=== PATIENT | female | born 1935 | race Caucasian/White ===

== ENCOUNTER 2016-10-25 09:51 | Inpatient (IN) | payer OTHER ==
--- NOTE | ~2016-10-25 | CR63 ---
[facility] A Service of [facility] RADIOLOGY TEXT RESULTS PATIENT: SINDHU SAMAYOA LOCATION: [place] [address] : 36 UNIT #: [id number] AGE: [address]: Zita Kennedy MD SEX: F ORDER DR: [id number] [facility] [address] [place], [place] [address] [id number] I MR#: [id number] Acc #: [id number] NAME: SINDHU SAMAYOA : 1935 SEX: F STUDY DATE/TIME: 10/25/2016 17:03 UNIT: [facility] [place] [facility] ROOM: [facility] STUDY DESCRIPTION: CR Chest 2 View Attending Physician: Zita Kennedy M.D. Ordering Physician: Zita Kennedy M.D. Primary Care Physician: Hank Gongora M.D. MEDICAL IMAGING REPORT This report is preliminary unless electronic signature is present EXAM Chest, PA and lateral. DATE OF EXAM 10/25/2016 HISTORY Chest congestion today. Right hip pain and pelvic fractures, status post fall today, preop, surgical repair of fractures. FINDINGS The heart size is stable compared with 03/18/2016. The lungs are hyperinflated with emphysematous and fibrotic changes characteristic of COPD. No airspace consolidation is seen. There are no pleural effusions. IMPRESSION COPD. No active pulmonary disease. Dictated by... Jalil Otoole M.D. THIS IS AN ELECTRONICALLY VERIFIED REPORT Jalil Otoole M.D. at 10/26/2016 1:13 PM MARISELA/shantel TD: 10/25/2016 20:54 JOB #: [id number] MEDICAL IMAGING REPORT Page 1 of 1 COPY
--- NOTE | ~2016-10-25 | DS ---
Unit #: [id number] #: [id number] Patient: SINDHU SAMAYOA [id number] [address] [place], [place] [address] [id number] I MR#: [id number] NAME: SINDHU SAMAYOA ROOM: [facility] Age: 81 Sex: F Admission Date: 10/25/2016 : 1935 Discharge Date: 10/28/2016 Attending Physician: Garry Bedoya M.D. Primary Care Physician: Hank Gongora M.D. DISCHARGE SUMMARY ADMITTING DIAGNOSES 1. Fall and pelvis fracture. 2. Osteoporosis. DISCHARGE DIAGNOSES 1. Fall and pelvis fracture. 2. Osteoporosis. CRUISE COORDINATOR Dr. Emerson. PROCEDURES None. HISTORY OF PRESENTING ILLNESS The patient is an 81-year-old pleasant lady with a past medical history of osteoporosis, who tripped and fell on a wet floor on the and presented to the emergency room. In the emergency room, a CT of the hip and pelvis showed a mildly displaced right inferior pubic ramus fracture and right sacral ala nondisplaced fracture. She was complaining of pain and unable to move. HOSPITAL COURSE Dr. Emerson from Orthopedic Surgery was consulted. Dr. Emerson evaluated her and recommended conservative management at this point. He recommended weightbearing exercises and to follow with him in the clinic in a couple of weeks. We requested PT and OT to evaluate her, and she will be transferred to subacute rehab for further management. PHYSICAL EXAMINATION ON DAY OF DISCHARGE VITAL SIGNS: Temperature 97.6, pulse rate 91, respiratory rate 16, and blood pressure 129/75. GENERAL: Patient is alert and oriented x3, lying in the bed in no acute distress. HEENT: Normocephalic and atraumatic. No icterus. Pupils are equal, round, and reactive to light and accommodation. Extraocular muscles intact. NECK: Supple. No JVD. HEART: S1 and S2, regular rate and rhythm. CHEST: Bilateral equal air entry, clear to auscultation. ABDOMEN: Soft and nontender. EXTREMITIES: No edema. Normal pulses. DISCHARGE MEDICATIONS Unit #: [id number] #: [id number] Patient: SINDHU SAMAYOA 1. Protonix 40 mg daily. 2. Lovenox 40 mg subcutaneous daily for 4 weeks while she is at rehab for DVT prophylaxis. 3. Hydrocodone/Tylenol 6/325 mg 1 tab p.o. q.4-6 p.r.n. for pain. 4. Os-Matty and vitamin D, 500 mg of Os-Matty with 1 capsule of vitamin D p.o. daily. DISCHARGE INSTRUCTIONS All the discharge instructions were explained in detail to the patient. Total time spent in her care 32 minutes. Dictated by... Samy Jasso TD: 10/28/2016 14:24 JOB #: [id number] DISCHARGE SUMMARY Page 1 of 1 X X DISCHARGE SUMMARY
--- NOTE | ~2016-10-25 | CT107 ---
[facility] A Service of [facility] RADIOLOGY TEXT RESULTS PATIENT: SINDHU SAMAYOA LOCATION: [facility] 475- : 36 UNIT #: [id number] AGE: [address]: Zita Kennedy MD SEX: F ORDER DR: [id number] [facility] [address] [place], [place] [address] [id number] I MR#: [id number] Acc #: [id number] NAME: SINDHU SAMAYOA : 1935 SEX: F STUDY DATE/TIME: 10/25/2016 10:58 UNIT: [facility] ROOM: [facility] STUDY DESCRIPTION: CT Pelvis Wo Cont Attending Physician: iZta Kennedy M.D. Ordering Physician: Neena Thompson M.D. Primary Care Physician: Hank Gongora M.D. MEDICAL IMAGING REPORT This report is preliminary unless electronic signature is present EXAM CT pelvis 10/25 at 10:58 INDICATIONS Right hip pain after fall early this morning. Pain is 6/10. TECHNIQUE Axial images were obtained through the pelvis without contrast. Multiplanar reformats were obtained. Comparison made with radiographs obtained the same day. This CT exam was performed with one or more of the following radiation dose reduction techniques: automatic control, adjustment of mA and/or kV according to patient size, and iterative reconstruction. FINDINGS Patient is osteopenic. Patient has a left hip arthroplasty which is well positioned. No hip dislocation on either side. There is a nondisplaced fracture through the right sacroiliac involving the anterior cortex. There is no sacroiliac joint diastases. There is a mildly displaced right mid inferior pubic ramus fracture. There is a nondisplaced fracture on the right side at the junction of the superior pubic ramus and to the acetabulum. There is a second nondisplaced fracture at the junction of the right superior pubic ramus and the right side of the symphysis pubis. No femur fracture is seen. There are no other definitive acute pelvis fractures. Soft tissue windows show atherosclerotic disease. Urinary bladder is mildly distended but otherwise normal. The appendix is normal. There is degenerative disease in the lower lumbar spine. IMPRESSION 1. Nondisplaced fracture of the anterior right sacral ala. 2. Nondisplaced fracture at the junction of the right superior pubic ramus and right acetabulum. 3. Nondisplaced fracture at the junction of the superior pubic ramus and STS. [facility] A Service of [facility] RADIOLOGY TEXT RESULTS PATIENT: SINDHU SAMAYOA LOCATION: [place] [address] : 36 UNIT #: [id number] AGE: [address]: Zita Kennedy MD SEX: F ORDER DR: the symphysis pubis. 4. Mildly displaced fracture of the right mid inferior pubic ramus. 5. Osteopenia. Left hip arthroplasty. Dictated by... Hank Dozier Jr., M.D. THIS IS AN ELECTRONICALLY VERIFIED REPORT Hank Dozier Jr., M.D. at 10/26/2016 2:40 AM SHYAM/curly TD: 10/26/2016 00:33 JOB #: [id number] MEDICAL IMAGING REPORT Page 1 of 1 COPY
--- NOTE | ~2016-10-25 | A ---
[facility] Nutrition Therapy DATE: 10/27/16 Patient: SINDHU F DANITA Physician: BRUCE Address: [address] [place] [address] Room/Bed: [address] [place] [address], Zip: [place] [address] Admit Date: 10/25/16 Date of : 37 Height: 4 11 Weight: 85 39 NUTRITIONAL ASSESSMENT: REASON: Low BMI 81 yo female admitted for a fall, R hip pain PMH: Osteoporosis Anthropometrics: Ht: Wt: 44.1 kg (97#) BMI: 19.6, 99%IBW Labs: Gluc 122 Meds: Protonix I/O & Bowel function: 600/452, last BM 10/24 Skin Integrity: Scar (R hip) Edema: Sacral area (generalized) Assessment: Chart reveiwed, events noted. Per chart, pt has an inferior pubic ramus fracture. Pt reported having poor appetite and not eating much while here d/t not feeling well. Pt stated eating half of her biscuits and gravy this morning. Pt reported good appetite at home. Pt reported wt loss of ~10-15# over the past year d/t medical issues (previous fractures). RD events intern encouraged adequate PO intake and a supplement to increase calorie and protein intake. Pt agreed to Ensure pudding. Pt had no diet questions at this time. See recommendations below. Dx: Inadequate protein-energy intake RT current clinical condition AEB poor appetite, ~10-15# wt loss, low BMI. Intervention: 1. Ensure pudding BID 2. Regular diet Monitoring, Evaluation and Goals: 1. PO intake; consume >75% of meals and supplements 2. Weight; prevent unintentional weight loss Recommendations: 1. Please order Butterscotch Ensure pudding BID w/ meals. [facility] Nutrition Therapy DATE: 10/27/16 Patient: SINDHU SAMAYOA Physician: BRUCE Address: [address] [place] [address] Room/Bed: [address] [place] [address], Zip: [place] [address] Admit Date: 10/25/16 Date of : 37 Height: 4 11 Weight: 85 39 2. Appreciate family and staff to encourage adequate calorie and protein intake. Pt is at a mild nutritional risk. RD will f/u per protocol. Respectfully, Afia Morales, Central Office Operator Juan Manuel Magana MS, RD, LD Food and Nutritional Services [facility] cc: client file
--- NOTE | ~2016-10-25 | EKG ---
PATIENT: SINDHU SAMAYOA UNIT #: [id number] Ventricular Rate: 78 BPM Atrial Rate: 78 BPM P-R Interval: 122 ms QRS Duration: 84 ms Q-T Interval: 356 ms QTC Calculation(Bezet): 405 ms P [place]: 81 degrees Calculated R [place]: 78 degrees Calculated T [place]: 74 degrees Diagnosis Line: Normal sinus rhythm Diagnosis Line: Normal ECG Diagnosis Line: When compared with ECG of 18-MAR-2016 02:44, Diagnosis Line: No significant change was found Diagnosis Line: Confirmed by RODGER LUCIA MD ([id number]) on 10/26/2016 Diagnosis Line: 4:44:53 PM INTERPRETING MD: REA BECK
--- NOTE | ~2016-10-25 | CR151 ---
[facility] A Service of [facility] RADIOLOGY TEXT RESULTS PATIENT: SINDHU SAMAYOA LOCATION: [place] [address] : 36 UNIT #: [id number] AGE: [address]: Garry Bedoya MD SEX: F ORDER DR: [id number] [facility] [address] [place], [place] [address] [id number] MR#: [id number] Acc #: [id number] NAME: SINDHU SAMAYOA : 1935 SEX: F STUDY DATE/TIME: 10/25/2016 9:37 UNIT: [facility] ROOM: STUDY DESCRIPTION: CR Hip Min 2 Views Rt Attending Physician: Sharmin Hoskins A.P.R.N. Ordering Physician: Ed Jerald Mustafa M.D. Primary Care Physician: Hank Gongora M.D. MEDICAL IMAGING REPORT This report is preliminary unless electronic signature is present EXAM AP pelvis and right hip dated 10/25/1978. HISTORY SUPPLIED Fell today. Pain in right hip. FINDINGS An AP view of the pelvis and oblique view of the right hip are submitted. There is osteopenia. Patient has had a left total hip arthroplasty. Right hip appears intact. No fractures are identified. CONCLUSIONS 1. Status post left total hip arthroplasty. 2. Osteopenia. 3. No acute fractures identified. Dictated by... Fredy Marcelino M.D. THIS IS AN ELECTRONICALLY VERIFIED REPORT Fredy Marcelino M.D. at 10/27/2016 5:03 PM ANGELIQUE/lucius TD: 10/25/2016 13:05 JOB #: [id number] MEDICAL IMAGING REPORT Page 1 of 1 COPY
--- NOTE | ~2016-10-25 | CO ---
Unit #: [id number] #: [id number] Patient: SINDHU BALTAZAR [id number] [address] [address] [id number] I MR#: [id number] NAME: SINDHU BALTAZAR ROOM: [facility] Age: 81 Sex: F Admission Date: 10/25/2016 : 1935 Attending Physician: Zita Kennedy M.D. Primary Care Physician: Hank Gongora M.D. Consultation Date: 10/26/2016 CONSULTATION REPORT REASON FOR CONSULTATION Right-sided pelvic fractures. HISTORY OF PRESENT ILLNESS Ms. Baltazar is an 81-year-old female known to our orthopedic group, who apparently was cleaning bathroom floors yesterday, when she fell, landing on the right hip and buttock region. The patient was unable to bear weight. She lives with her son. She denied any loss of consciousness or dizziness. She reports that she just essentially fell down. In the emergency room x-rays and CAT scan revealed pubic rami fractures and sacral ala fracture. The patient was unable to bear weight and was admitted for pain control. PAST MEDICAL HISTORY Osteoporosis. PAST SURGICAL HISTORY 1. Bilateral tubal ligation. 2. Left hip hemiarthroplasty. 3. ORIF left leg fracture. SOCIAL HISTORY The patient lives with her son. She denies current tobacco, alcohol or drug use. FAMILY HISTORY Noncontributory. ALLERGIES No known drug allergies. HOME MEDICATIONS None. PHYSICAL EXAMINATION GENERAL: The patient is alert and oriented for exam. No acute distress. VITALS: Temperature 98.1 degrees Fahrenheit, pulse 78, respiratory rate 20, 96% oxygen saturation on 3 liters, blood pressure 151/82. HEENT: Head is atraumatic, normocephalic. Extraocular movements intact. Mucous membranes moist. NECK: Cervical spine midline. No jugular venous distension. LUNGS: Breathing normal. Chest rises symmetric. HEART: Pulse regular rate and rhythm. ABDOMEN: Soft, nontender and nondistended. Unit #: [id number] #: [id number] Patient: SINDHU BALTAZAR EXTREMITIES: No clubbing, cyanosis or edema of the extremities. All extremities are warm and well perfused. Normal motor and sensory examination all extremities. Focus examination of the right lower extremity reveals no pain with log roll. She does have significant pain with hip flexion and extension. Mild tenderness to palpation around the pelvic region. No skin lesions. DIAGNOSTIC STUDIES IMAGING: X-rays and CAT scan reviewed of the pelvis. The are minimally displaced superior and inferior pubic rami fractures on the right side. Right sacral ala fracture noted. High superior ramus fracture extending into the anterior acetabulum junction. Well appearing left hip hemiarthroplasty noted. LABORATORY: BMP normal. CBC normal. Urinalysis normal with 1.0 urobilinogen. Urine culture pending. ASSESSMENT The patient is an 81-year-old female with right-sided superior and inferior pubic rami fractures, right sacral ala fracture. PLAN The patient is admitted for pain control and therapy. She can be weightbearing as tolerated with physical therapy. Order provided. No surgery needed for this. She will follow up in the office in two weeks. Plan for rehab versus home with home healthcare depending on functional status with therapy. This was discussed with the patient. All of her questions were answered today. Dictated by... Mal Emerson M.D. CARLOS/masoud TD: 10/26/2016 08:07 JOB #: [id number] CC: Mal Emerson M.D. CONSULTATION REPORT Page 1 of 1 X X CONSULTATION REPORT
--- NOTE | ~2016-10-25 | HP ---
Unit #: [id number] #: [id number] Patient: SINDHU SAMAYOA [id number] [address] [place], [place] [address] [id number] E MR#: [id number] NAME: SINDHU SAMAYOA ROOM: Age: 81 Sex: F Admission Date: 10/25/2016 : 1935 Attending Physician: Sharmin Hoskins A.P.R.N. Primary Care Physician: Hank Gongora M.D. HISTORY AND PHYSICAL CHIEF COMPLAINT "I fell." HISTORY OF PRESENT ILLNESS A pleasant 81-year-old female who basically has a history of osteoporosis, tripped and fell on the wet floor earlier today and came in for evaluation in the emergency room. She denies any chest pain, shortness of breath, difficulty breathing. X-ray of the hip was negative for fracture. CT scan of the hip and pelvis showed mildly displaced right inferior pubic ramus fracture and right sacral ala nondisplaced fracture. Patient unable to walk at this time. The patient is having pain and pain is actually relieved with pain medication. REVIEW OF SYSTEMS Denies any chest pain, lightheadedness. Denies any dysuria or frequency. Denies any melena, hematochezia, hemoptysis, hematemesis. A complete 10-point review of systems has been done and pertinent positives noted. PAST MEDICAL HISTORY Osteoporosis. PAST SURGICAL HISTORY 1. Bilateral tubal ligation. 2. Open reduction internal fixation of left leg fracture. 3. Hip arthroplasty in 2016. ALLERGIES No known drug allergies. HOME MEDICATIONS None. FAMILY HISTORY Negative for heart disease. SOCIAL HISTORY The patient lives by herself. Quit smoking about 11 years ago. No alcohol use or illicit drug use. PHYSICAL EXAMINATION GENERAL: Was comfortable, not in distress. VITAL SIGNS: Blood pressure 134/88, pulse 99, respiratory rate 18, temperature 97.4. HEENT: Pupils were equal and reactive to light and accommodation. Unit #: [id number] #: [id number] Patient: SINDHU SAMAYOA NECK: Supple without thyromegaly. CARDIOVASCULAR: First and second heart sounds only. ABDOMEN: Full, moves with respiration, soft. No palpable organomegaly. Positive normal bowel sounds. EXTREMITIES: No edema. SKIN: Warm and dry with no rashes. MUSCULOSKELETAL: I did not observe her walk; however, per ER report the patient is unable to walk without pain. Patient states that she is having some pain. DIAGNOSTIC STUDIES LABORATORY: Her chemistries were essentially normal with a glucose of 121, BUN and creatinine 14 and 0.8, sodium 135, potassium 3.9, chloride 101, bicarbonate 24, calcium 8.9. Alkaline phosphatase 100. CBC: WBC 9.2, hemoglobin and hematocrit 13.3 and 41.2 with a platelet count of 107,000, neutrophil count of 90.2. IMAGING: CT scan findings as noted above. ASSESSMENT AND PLAN 1. Traumatic inferior pubic ramus fracture: Consult has been placed by Dr. Emerson, Orthopedics for evaluation. PT/OT evaluation has been ordered. 2. Osteoporosis. 3. Deep venous thrombosis prophylaxis: Put her on Lovenox 40 mg subcutaneous daily. 4. Gastrointestinal prophylaxis: Put her on Protonix 40 mg p.o. daily. Will get an EKG in the morning. Will manage her pain. Will admit her inpatient. Dictated by Samy Fatima/patricia TD: 10/25/2016 16:04 JOB #: [id number] CC: Hank Gongora M.D. HISTORY AND PHYSICAL Page 1 of 1 X Zita Kennedy MD HISTORY AND PHYSICAL
[2016-10-25 09:51] LABS: BASOPHIL# 0.1 X10e3 (0-0.3); BASOPHIL% 0.7 % (0-2.5); HEMATOCRIT 41.2 % (35.0-45.0); HEMOGLOBIN 13.3 gm/dL (12.0-16.0); LYMPHOCYTE# 0.5 X10e3 (1.0-3.5); LYMPHOCYTE% 5.6 % (17.0-45.0); MEAN CELL VOLUME 92.6 FL (83-96); MEAN CORPUSCULAR HEMOGLOBIN 29.9 PG (28-34); MEAN CORPUSCULAR HGB CONC 32.3 g/dL (30-36); MEAN PLATELET VOLUME 8.1 FL (6.5-11.5); MONOCYTE# 0.3 X10e3 (0-1.0); MONOCYTE% 3.5 % (3.0-12.0); NEUTROPHIL# 8.3 X10e3 (1.5-7.1); NEUTROPHIL% 90.2 % (40-75); PLATELET COUNT 197 X10e3 (140-420); RED BLOOD COUNT 4.44 X10e (3.90-5.30); RED CELL DISTRIBUTION WIDTH 13.6 % (11.0-15.5); WHITE BLOOD COUNT 9.2 X10e3 (4.0-10.5)
[~2016-10-25 09:51] MED LIST: CALCIUM 500 +1 EAC2 PO; NO MEDICATIONS
[2016-10-25 10:00] LABS: DIFF IND NO
[2016-10-25 10:41] LABS: ALBUMIN SERUM 4.1 g/dL (3.5-5.0); BUN/CREATININE RATIO 17.5; CALCIUM SERUM 8.9 mg/dL (8.4-10.2); CREATININE SERUM 0.8 mg/dL (0.6-1.4); GLOM FILT RATE Estimated 69.7 mL/min (>60); POTASSIUM 3.9 mmol/L (3.5-5.1); PROTEIN TOTAL SERUM 7.7 g/dL (6.0-8.3)
[2016-10-25 21:59] LABS: URINE APPEARANCE CLEAR; URINE BILIRUBIN NEG (NEG); URINE BLOOD NEG (NEG); URINE COLOR YELLOW; URINE GLUCOSE NEG (NEG); URINE KETONE NEG (NEG); URINE LEUKOCYTE ESTERASE NEG (NEG); URINE NITRATE NEG (NEG); URINE PH 7.5 (5-8); URINE PROTEIN NEG (NEG); URINE SPECIFIC GRAVITY 1.017 (1.003-1.035)
[2016-10-28 03:02] LABS: BASOPHIL% 0.8 % (0-2.5); EOSINOPHIL# 0.3 X10e3 (0-0.7); EOSINOPHIL% 4.8 % (0.0-7.0); HEMATOCRIT 36.4 % (35.0-45.0); HEMOGLOBIN 11.7 gm/dL (12.0-16.0); LYMPHOCYTE# 1.2 X10e3 (1.0-3.5); LYMPHOCYTE% 21.4 % (17.0-45.0); MEAN CELL VOLUME 93.1 FL (83-96); MEAN CORPUSCULAR HGB CONC 32.2 g/dL (30-36); MEAN PLATELET VOLUME 7.9 FL (6.5-11.5); MONOCYTE# 0.5 X10e3 (0-1.0); NEUTROPHIL# 3.4 X10e3 (1.5-7.1); PLATELET COUNT 154 X10e3 (140-420); RED BLOOD COUNT 3.92 X10e (3.90-5.30); RED CELL DISTRIBUTION WIDTH 13.4 % (11.0-15.5); WHITE BLOOD COUNT 5.4 X10e3 (4.0-10.5)
[2016-10-28 03:06] LABS: DIFF IND NO
[2016-10-28 03:25] LABS: CALCIUM SERUM 8.1 mg/dL (8.4-10.2); CREATININE SERUM 0.8 mg/dL (0.6-1.4); GLOM FILT RATE Estimated 69.7 mL/min (>60); POTASSIUM 3.7 mmol/L (3.5-5.1)
== END 2016-10-28 18:00 | DRG 536 ==
LOC: CED 09:51 → C4C 15:20
PROVIDERS: Family Medicine; Internal Medicine; Nurse Practitioner
DX: S32.511A Fracture of superior rim of right pubis, initial encounter for closed fracture (principal); S32.19XA Other fracture of sacrum, initial encounter for closed fracture; S32.591A Other specified fracture of right pubis, initial encounter for closed fracture; W18.39XA Other fall on same level, initial encounter; Y93.E5 Activity, floor mopping and cleaning; Y92.002 Bathroom of unspecified non-institutional (private) residence as the place of occurrence of the external cause; M81.0 Age-related osteoporosis without current pathological fracture; Z87.891 Personal history of nicotine dependence; Z96.649 Presence of unspecified artificial hip joint; Z98.51 Tubal ligation status
CPT/HCPCS: 36415; 71020; 72192; 73502; 80048; 80053; 81003; 85025; 87086; 93005; 94760; 96374; 96375; 97110; 97116; 97162; 97167; 97530; 97535; 99285; G8978-GP; G8979-GP; G8987-GO; G8988-GO; J1650; J2270; J2405

== ENCOUNTER → 2016-12-16 | Outpatient (CLI) | payer OTHER ==
--- NOTE | ~2016-12-16 | BD1 ---
[facility] A Service of [facility] RADIOLOGY TEXT RESULTS PATIENT: SINDHU SAMAYOA LOCATION: [facility] : 37 UNIT #: [id number] AGE: [address]: Hank Gongora MD SEX: F ORDER DR: [id number] [facility] [address] [place], [place] [address] [id number] MR#: [id number] Acc #: [id number] NAME: SINDHU SAMAYOA : 1935 SEX: F STUDY DATE/TIME: 12/16/2016 11:24 UNIT: [facility] ROOM: STUDY DESCRIPTION: BD Dexa Bone Dens 1+ Site Attending Physician: Hank Gongora M.D. Referring Physician: Hank Gongora M.D. Ordering Physician: Hank Gongora M.D. Primary Care Physician: Hank Gongora M.D. MEDICAL IMAGING REPORT This report is preliminary unless electronic signature is present EXAM DEXA scan 12/16/2016 HISTORY Status post menopause with no hormone replacement therapy. Osteopenia. Breast carcinoma. Fracture of hip and pelvis in last 10 years. FINDINGS Bone mineral density in the lumbar spine from L1-L4 is 0.614 g/cm2 which is 3.9 standard deviations below the mean when compared to the young adult reference population which is characteristic of osteoporosis. This is 1.2 standard deviations below the mean when compared to the age-matched population. Bone mineral density in the right femoral neck was 0.476 g/cm2 which is 3.4 standard deviations below the mean when compared to the young adult reference population which is characteristic of osteoporosis. This is 1 standard deviation below the mean when compared to the age-matched population. IMPRESSION Bone mineral density in the lumbar spine and right hip characteristic of osteoporosis. Dictated by... Jalil Otoole M.D. THIS IS AN ELECTRONICALLY VERIFIED REPORT Jalil Otoole M.D. at 12/18/2016 8:21 AM MARISELA/scotty TD: 12/16/2016 14:31 JOB #: [id number] [facility] A Service of [facility] RADIOLOGY TEXT RESULTS PATIENT: SINDHU SAMAYOA LOCATION: [facility] #: [id number] : 37 UNIT #: [id number] AGE: [address]: Hank Gongora MD SEX: F ORDER DR: MEDICAL IMAGING REPORT Page 1 of 1 COPY
== END | disposition home or self-care (01) ==
LOC: CWCC 11:00
DX: Z13.820 Encounter for screening for osteoporosis (principal)
CPT/HCPCS: 77080